=== PATIENT | female | born 1955 | race Caucasian/White ===

== ENCOUNTER → 2017-10-23 | Outpatient (CLI) | payer BC ==
[~2017-10-23] MED LIST: SIMV-49 PO; THYR60TA25 PO
--- NOTE | 2017-10-24 12:21 | RADIOLOGY IMAGING REPORT ---
FACILITY: [facility] PATIENT NAME: MIKEY BOLTON : [id number] MR: [id number] V: [id number] EXAM DATE: [id number] ORDERING PHYSICIAN: KELLY SOLO TECHNOLOGIST: Alison Barker PROCEDURE:BILATERAL DIGITAL SCREENING MAMMOGRAM WITH CAD ASSISTED INTERPRETATION & 3D TOMOSYNTHESIS COMPARISON:Dating back to 2012 are available. INDICATIONS:SCREENING TECHNIQUE: Routine CC & MLO 3D tomographic images were obtained of both breasts. CAD was used. BREAST DENSITY: Scattered fibroglandular densities. FINDINGS: There are stable scattered asymmetries. There is no dominant mass, suspicious cluster of calcifications or persistent areas of architectural distortion. DIAGNOSTIC CATEGORY 1--NEGATIVE. RECOMMENDATIONS: ROUTINE MAMMOGRAM AND CLINICAL EVALUATION IN 1 YR. IMPRESSION: BIRADS 1: Negative. Dictated by: Ryan Brown M.D. on 10/24/2017 at 8:59 Transcribed by: HENRRY on 10/24/2017 at 11:38 Approved by: Ryan Brown M.D. on 10/24/2017 at 12:20 [facility]
== END ==
LOC: MAMO 01:10
PROVIDERS: ATTEND Obstetrics & Gynecology
DX: Z12.31 Encounter for screening mammogram for malignant neoplasm of breast (principal)
CPT/HCPCS: 77063; 77067

== ENCOUNTER → 2018-07-11 | Outpatient (CLI) | payer BC ==
[~2018-07-11] MED LIST changes: +PHEN200T32 PO; +SULF-198 PO; +[UNRECOGNIZED DRUG - CODE] PO
== END ==
LOC: LAB 14:44
PROVIDERS: ATTEND Nurse Practitioner Primary Care
DX: N39.0 Urinary tract infection, site not specified (principal); B96.89 Other specified bacterial agents as the cause of diseases classified elsewhere
CPT/HCPCS: 87088

== ENCOUNTER → 2018-08-27 | Outpatient (CLI) | payer BC ==
[~2018-08-27] MED LIST changes: +CLOB15OI16 TP; +ESTR42.53 PV; +THYR65TA14 PO
--- NOTE | 2018-08-27 16:05 | RADIOLOGY IMAGING REPORT ---
FACILITY: [facility] PATIENT NAME: Tanesha Savage : 1955 MR: [id number] V: [id number] EXAM DATE: ORDERING PHYSICIAN: KELLY SOLO TECHNOLOGIST: Location: [facility] Patient: Tanesha Savage : 1955 Visit/Account:[id number] Date of Sevice: 08/27/2018 DEXA Scan Clinical history: Postmenopausal osteopenia. Comparison: None available. LUMBAR SPINE: The bone mineral density (BMD) measured from L1-L4 correlates with a Z-score -0.7 and a T-score of -2 .4 which is osteopenia as defined by the World Health Organization. The corresponding risk of fractu re in the lumbar spine is 4-6 times increased compared with a young adult reference population. HIP: Bone mineral density (BMD) measured in the Left total hip region correlates with a Z-score -1.6 and a T-score of is 2.8 which is osteoporosis as defined by the World Health Organization. The correspond ing risk of fracture in the hip is 6-8 times increased compared with a young adult reference populati on. T score left femoral neck -2.5 Bone mineral density (BMD) measured in the Femoral Neck region measures 0.685 g/cm2. Impression: 1. Lumbar spine: Osteopenia. 2. Left Hip: Osteoporosis. 3. Femoral Neck: Bone Mineral Density is 0.685 g/cm2 The next DEXA scan of this patient should include the following sites: L1-L4 and the left hip. FRAX? WHO Fracture Risk Assessment Tool link: <http://www.shef.ac.uk/FRAX/tool.jsp?locationValue=9> PLEASE NOTE: 1) The World Health Organization defines low BMD as follows: T-score Normal > -1 Osteopenia < -1 and > -2.5 Osteoporosis < -2.5 without fractures Established osteoporosis < -2.5 with fractures 2) In general, you may wish to consider: Diagnosis Treatment Follow-up DEXA Normal BMD Prevention 2-3 years Osteopenia Prevention/therapy 1-2 years Osteoporosis Therapy Yearly 3) Fracture risk estimated from the T-score is more accurate for vertebral fractures (often spontane ous) than for hip fractures. Report Dictated By: Brenda Hayward MD at 08/27/2018 3:58 PM Report E-Signed By: Brenda Hayward MD at 08/27/2018 4:00 PM WSN:[email or web address]
== END ==
LOC: RAD 07:08
PROVIDERS: ATTEND Obstetrics & Gynecology
DX: Z00.00 Encounter for general adult medical examination without abnormal findings (principal); M81.0 Age-related osteoporosis without current pathological fracture; M85.80 Other specified disorders of bone density and structure, unspecified site
CPT/HCPCS: 77080

== ENCOUNTER → 2018-10-30 | Outpatient (CLI) | payer BC ==
[~2018-10-30] MED LIST changes: +THYR65TA PO
--- NOTE | 2018-11-02 09:45 | RADIOLOGY IMAGING REPORT ---
FACILITY: [facility] PATIENT NAME: MIKEY BOLTON : [id number] MR: [id number] V: [id number] EXAM DATE: [id number] ORDERING PHYSICIAN: KELLY SOLO TECHNOLOGIST: Alison Barker PROCEDURE:BILATERAL DIGITAL SCREENING MAMMOGRAM WITH CAD ASSISTED INTERPRETATION & 3D TOMOSYNTHESIS COMPARISON:Prior mammograms dated 10/23/17, 09/28/16, 09/15/15, 08/06/14, 06/26/13 INDICATIONS:SCREENING FINDINGS: There are scattered areas of fibroglandular densities throughout the breasts. The parenchymal pattern has remained stable allowing for difference in mammographic technique & patient positioning. DIAGNOSTIC CATEGORY 1--NEGATIVE. RECOMMENDATIONS: ROUTINE MAMMOGRAM AND CLINICAL EVALUATION. IMPRESSION: BIRADS 1: Negative. No significant abnormality is seen. Dictated by: Brenda Hayward M.D. on 10/31/2018 at 17:25 Transcribed by: HENRRY on 11/01/2018 at 13:57 Approved by: Brenda Hayward M.D. on 11/02/2018 at 9:44 [facility]
== END ==
LOC: MAMO 00:33
PROVIDERS: ATTEND Obstetrics & Gynecology
DX: Z12.31 Encounter for screening mammogram for malignant neoplasm of breast (principal); Z80.3 Family history of malignant neoplasm of breast
CPT/HCPCS: 77063; 77067